=== PATIENT | female | born 1950 | race Asian ===

== ENCOUNTER 2020-08-01 17:26 | Emergency (ER) | payer MEDICARE, OTHER, SELFPAY ==
[2020-08-01 17:31] VITALS: BP 155/88; PULSE 105; RESP 20; TEMP 37.1; O2SAT 99
--- NOTE | 2020-08-01 18:01 | ED_ITS ---
HPI - Recheck/Abnormal Lab/Rx General Chief Complaint: Recheck/Abnormal Lab/Rx Stated Complaint: Sugar levels high and ketones in urine Time Seen by Provider: 08/01/20 17:57 Source: patient Mode of arrival: Ambulatory Limitations: no limitations History of Present Illness HPI narrative: 69-year-old female nonsmoker with known type 2 diabetes presents with her at the request of their primary care provider. She has no symptoms and specifically denies dizziness, weakness or lightheadedness. She has no chest pain, shortness of breath or cough. She has had no runny nose, sore throat or fever. She denies any abdominal pain, nausea, vomiting or urinary complaints such as polyuria, dysuria, frequency or urgency. Four years ago the patient has stopped taking her diabetic medications because they made h er feel poorly and gain weight. Since then she has been managing her illness with diet and exercise. She had routine labs with her primary care provider and noted a blood glucose that was elevated, in the 400s and she was encouraged to present for evaluation Returns today for: called because of abnormal lab/test Symptoms since prior visit: no new symptoms Related Data Allergies Allergy/AdvReac Type Severity Reaction Status Date / Time Iodine and Iodide Containing Allergy Verified 08/01/20 19:01 Produc Penicillins Allergy Verified 08/01/20 19:01 sulfamethoxazole Allergy Verified 08/01/20 19:01 [From ] trimethoprim [From ] Allergy Verified 08/01/20 19:01 Patient History Smoking Status: Never smoker alcohol intake frequency: 0-2 drinks per day Substance Use Type: does not use Exam Narrative Exam Narrative: GENERAL: [69] year old patient appears stated age. Well- nourished, well-developed patient, in mild distress. HEAD: Atraumatic. Normocephalic. EYES: Pupils equal round and reactive. Extraocular motions intact. No scleral icterus. No injection or drainage. ENT: Nose without bleeding, purulent drainage. Throat without erythema, tonsillar hypertrophy or exudate. Airway patent. NECK: Trachea midline. Non tender CARDIOVASCULAR: Regular rate and rhythm without murmurs, gallops, or rubs. RESPIRATORY: Clear to auscultation. Breath sounds equal bilaterally. No wheezes, rales, or rhonchi. GASTROINTESTINAL: Abdomen soft, non-tender, nondistended. EXTREMITIES: No edema or joint tenderness. BACK: Nontender without deformity or crepitance. No flank tenderness. NEURO: AOx3. SKIN: No rash or erythema of visible areas Initial Vital Signs Initial Vital Signs: Vital Signs Temperature 98.8 F 08/01/20 17:31 Pulse Rate 105 H 08/01/20 17:31 Respiratory Rate 20 08/01/20 17:31 Blood Pressure 155/88 H 08/01/20 17:31 Pulse Oximetry 99 08/01/20 17:31 Course Orders Ordered: ED Orders 08/01/20 18:00 Complete Blood Count AUTO DIFF Stat Comprehensive Metabolic Panel Stat Lipase Stat Partial Thromboplastin Time Stat Prothrombin Time INR Stat Discontinued Medications Sodium Chloride (Normal Saline 0.9%) 1,000 mls @ 1,000 mls/hr IV BOLUS ONE Stop: 08/01/20 19:02 Last Infusion: 08/01/20 19:45 Dose: 0 mls/hr Documented by: Admin: 08/01/20 18:10 Dose: 1,000 mls/hr Documented by: JUAN ANTONIO Vital Signs Vital signs: Vital Signs - 8 hr 08/01/20 17:31 08/01/20 18:27 08/01/20 18:30 Temperature 98.8 F Pulse Rate 105 H 94 H 93 H Respiratory Rate 20 20 18 Blood Pressure 155/88 H Pulse Oximetry 99 100 100 08/01/20 18:31 08/01/20 19:00 08/01/20 19:30 Temperature Pulse Rate 93 H 92 H 89 Respiratory Rate 19 21 16 Blood Pressure 136/77 153/75 H 145/76 H Pulse Oximetry 100 100 100 MDM - Recheck/Abnormal Lab/Rx Lab Data Result diagrams: 08/01/20 18:00 08/01/20 18:00 Labs: Lab Results 08/01/20 08/01/20 08/01/20 Range/Units 18:00 18:00 18:00 WBC 7.0 (4.5-11.0) X10^3/uL RBC 4.56 (4.0-5.2) X10^6/uL Hgb 14.7 (12.0-16.0) g/dL Hct 42.4 (36-46) % MCV 93.0 (80-100) fL MCH 32.3 (26-34) PG MCHC 34.7 (30-36) % RDW 12.1 (11.6-14.8) % Plt Count 258 (150-400) X10^3/uL Neut % (Auto) 66.2 (50-75) % Lymph % (Auto) 26.1 (25-40) % [place] % (Auto) 5.8 (3-14) % Eos % (Auto) 1.1 L (2-4) % Baso % (Auto) 0.8 (0-2) % Neut # (Auto) 4700 (9585-1135) /uL Lymph # (Auto) 1800 (2754-9757) /uL [place] # (Auto) 400 (0-900) /uL Eos # (Auto) 100 (0-450) /uL Baso # (Auto) 100 (0-100) /uL PT 10.9 (10.1-12.7) SECONDS INR 1.0 (0.9-1.3) APTT 31 (26.4-36.2) SECONDS Sodium 132 L (137-145) mmol/L Potassium 4.5 (3.4-5.1) mmol/L Chloride 96 L (98-107) mmol/L Carbon Dioxide 24 (22-32) mmol/L BUN 18 H (7-17) mg/dL Creatinine 0.48 L (0.52-1.04) mg/dL Estimated GFR > 60.0 (>60) mL/min BUN/Creatinine Ratio 37.5 H (6-22) Glucose 394 H (80-110) mg/dL Calcium 9.6 (8.4-10.2) mg/dL Total Bilirubin 0.4 (0.2-1.3) mg/dL AST 26 (14-36) IU/L ALT 20 (<35) IU/L Alkaline Phosphatase 146 H (38-126) U/L Total Protein 7.9 (6.3-8.2) g/dL Albumin 4.7 (3.5-5.0) g/dL Globulin 3.2 (1.7-4.1) g/dL Albumin/Globulin Ratio 1.5 (1.0-2.8) Lipase 172 (23-300) U/L Point of Care Testing Glucose POC 269 MDM Narrative Medical decision making narrative: Asymptomatic diabetic patient with initial elevated glucose and significant improvement after fluids. Her primary care provider wrote her prescription for metformin which she just picked up and this seems like a reasonable next step. She is completely asymptomatic and has reassuring labs. She has been given extensive return precautions. Her and understand and agree with the plan. They have had questions answered to their apparent satisfaction. Discharge Plan Departure Patient Disposition: Home Clinical Impression: Acute hyperglycemia Instructions: DI for Diabetes Type 2 Activity Restrictions/Additional Instructions: *You have been diagnosed with [hyperglycemia, exacerbation of type 2 diabetes] *What to do: *Take medications as directed *Follow up with your primary care provider in 2-3 days, call for an appointment. Let them know you were seen in the Emergency Department and that we ask that you be seen in follow up. Given you contact information for the [facility] resource line as we discussed, please call them tomorrow and ask about opportunities for diabetic Education *Return to ER if you should have any new, worsening or concerning symptoms
[2020-08-01] MEDS: SODIUM CHLORIDE 0.9% 1,000 ML 1000 ML IV (18:10)
[2020-08-01 18:12] LABS: Add Manual Diff / Slide Review NO; Basophils Absolute Auto 100 /uL (0-100); Basophils Percent Auto 0.8 % (0-2); Eosinophils Absolute Auto 100 /uL (0-450); Eosinophils Percent Auto 1.1 % (2-4); Hematocrit 42.4 % (36-46); Hemoglobin 14.7 g/dL (12.0-16.0); Lymphocytes Absolute Auto 1800 /uL (1100-4500); Lymphocytes Percent Auto 26.1 % (25-40); Mean Corpuscular HGB Conc 34.7 % (30-36); Mean Corpuscular Hemoglobin 32.3 PG (26-34); Monocytes Absolute Auto 400 /uL (0-900); Monocytes Percent Auto 5.8 % (3-14); Neutrophils Absolute Auto 4700 /uL (1500-7000); Neutrophils Percent Auto 66.2 % (50-75); Platelet Count 258 X10^3/uL (150-400); Red Blood Cell Count 4.56 X10^6/uL (4.0-5.2); Red Cell Distribution Width 12.1 % (11.6-14.8)
[2020-08-01 18:26] LABS: Prothrombin Time 10.9 SECONDS (10.1-12.7)
[2020-08-01 18:27] VITALS: PULSE 94; RESP 20; O2SAT 100
[2020-08-01 18:28] LABS: Alanine Aminotransferase 20 IU/L (<35); Albumin 4.7 g/dL (3.5-5.0); Albumin Globulin Ratio 1.5 (1.0-2.8); Alkaline Phosphatase 146 U/L (38-126); Aspartate Aminotransferase 26 IU/L (14-36); BUN Creatinine Ratio 37.5 (6-22); Bilirubin Total 0.4 mg/dL (0.2-1.3); Blood Urea Nitrogen 18 mg/dL (7-17); Calcium 9.6 mg/dL (8.4-10.2); Carbon Dioxide 24 mmol/L (22-32); Chloride 96 mmol/L (98-107); Estimated Glomerular Filt Rate > 60.0 mL/min (>60); Globulin 3.2 g/dL (1.7-4.1); Glucose 394 mg/dL (80-110); HEMOLYSIS 35 (0-50); Lipase 172 U/L (23-300); PTT Partial Thromboplastin Tim 31 SECONDS (26.4-36.2); Potassium 4.5 mmol/L (3.4-5.1); Sodium 132 mmol/L (137-145); Total Protein 7.9 g/dL (6.3-8.2)
[2020-08-01 18:30] VITALS: PULSE 93; RESP 18; O2SAT 100
[2020-08-01 18:31] VITALS: BP 136/77; PULSE 93; RESP 19; O2SAT 100
--- NOTE | 2020-08-01 18:46 | PC.NURSE ---
pt denies chest pain.
[2020-08-01 19:00] VITALS: BP 153/75; PULSE 92; RESP 21; O2SAT 100
--- NOTE | 2020-08-01 19:09 | PC.NURSE ---
pt states pt is afraid of needles and doesn't want to take insulin. pt admits she hasn't been taking her meds correctly in a few years. pt denies any nausea or abd pain. pt denies any increased thirst or urination.
[2020-08-01 19:30] VITALS: BP 145/76; PULSE 89; RESP 16; O2SAT 100
== END 2020-08-01 19:59 | disposition home or self-care (01) ==
PROVIDERS: Emergency Medicine; Emergency Provider Emergency Medicine
DX: E11.65 Type 2 diabetes mellitus with hyperglycemia (principal)
CPT/HCPCS: 36415; 80053; 82962; 83690; 85025; 85610; 85730; 96360; 96361; 99283; 99284